=== PATIENT | female | born 1960 | race Caucasian/White ===

== ENCOUNTER 2021-09-23 19:21 | Emergency (ER) | payer BC, SELFPAY ==
[2021-09-23 19:27] VITALS: BP 157/77; PULSE 73; RESP 16; TEMP 36.2; O2SAT 99
--- NOTE | 2021-09-23 19:38 | ED.EAR ---
HPI - Ear Problem General Chief complaint: Ear Stated complaint: FB L EAR Time Seen by Provider: 09/23/21 19:38 Source: patient, RN notes reviewed and old records reviewed Mode of arrival: ambulatory Limitations: no limitations History of Present Illness HPI Narrative: 60 year old female who presents to [facility] with complaints of piece of her hearing aid being stuck in her left ear canal today and she is unable to get it removed. Patient denies any pain to her left ear, no drainage from her left ear. Patient is visiting her daughter in area she is from [facility]. Patient denies any other complaints at this time. She has not had COVID or Flu Shot she did have COVID in April of 2021. Complaint: foreign body (piece off of hearing aid) Location: left ear Related Data Home Medications Medication Instructions Recorded Confirmed No Home Medications 09/23/21 09/23/21 Allergies Allergy/AdvReac Type Severity Reaction Status Date / Time No Known Allergies Allergy Verified 09/23/21 19:28 Review of Systems Review of Systems: CONSTITUTIONAL: Denies fever, chills, or sweats. EYES: Denies visual changes, redness, or discharge. ENT: Denies rhinorrhea, congestion, sore throat, or otalgia.positive for foreign body in left ear CARDIOVASCULAR: Denies chest pain, palpitations, or edema. RESPIRATORY: Denies cough or dyspnea. GASTROINTESTINAL: Denies abdominal pain, nausea, vomiting, or diarrhea. GENITOURINARY: Denies dysuria or hematuria. SKIN: Denies rash or itching. MUSCULOSKELETAL: Denies back pain, joint pain, or myalgia. NEUROLOGIC: Denies headache, numbness, or weakness. PSYCHIATRIC: Denies anxiety or depression. [facility] Past Medical History Medical History (Updated 09/24/21 @ 19:34 by Spring Zavala NP) COVID-19 April of 2021 Surgical History Surgical History (Updated 09/24/21 @ 19:34 by Spring Zavala NP) H/O tubal ligation Social History Social History (Updated 09/24/21 @ 19:35 by Spring Zavala NP) Smoking status: Never smoker Alcohol intake: current Alcohol use details: social Substance use: never Substance use type: does not use Living arrangements: with family Gender identity (if verbalized by the patient): Female Comments At time of signature, agree with nursing past medical, surgical, social and family history. There is no relevant family history pertinent to the presenting complaint Exam Narrative: GENERAL: Well-appearing, well-nourished, and in no acute distress. HEAD: Normocephalic, atraumatic. EYES: PERRLA and EOMI. ENT: Nares clear, no rhinorrhea or epistaxis. Mucous membranes moist.TM's normal with good light reflex, presented with end of hearing aid stuck in left ear canal, removed using alligator forceps no injury to ear canal noted. throat pink with no lesions or exudates or tonsil swelling. NECK: Supple.no lymphadenopathy CHEST: Clear to auscultation. No respiratory distress. HEART: Regular rate and rhythm. No murmur heard. Normal peripheral pulses. ABDOMEN: Soft, nontender, nondistended, normal active bowel sounds. EXTREMITIES: Normal range of motion. No edema. SKIN: Warm, dry, no rash. NEURO: No focal deficits. Alert and oriented x3. Course Course Level of Care: Express Care Visit Vital Signs Vital signs: Vital Signs Temperature 36.2 C L 09/23/21 19:27 Pulse Rate 73 09/23/21 19:27 Respiratory Rate 16 09/23/21 19:27 Blood Pressure 157/77 H 09/23/21 19:27 Pulse Oximetry 99 09/23/21 19:27 Oxygen Delivery Room Air 09/23/21 19:27 Temperature 36.2 C L 09/23/21 19:27 Pulse Rate 73 09/23/21 19:27 Respiratory Rate 16 09/23/21 19:27 Blood Pressure 157/77 H 09/23/21 19:27 Pulse Oximetry 99 09/23/21 19:27 Oxygen Delivery Room Air 09/23/21 19:27 Procedures FB Removal Ear Foreign Body #1: Foreign Body Removal Date: 09/23/21 Foreign Body Removal Time: 19:42 Location: ear corin
== END 2021-09-23 19:54 | disposition home or self-care (01) ==
PROVIDERS: Emergency Provider Registered Nurse
DX: T16.2XXA Foreign body in left ear, initial encounter (principal); Z86.16 Personal history of COVID-19
CPT/HCPCS: 69200; 99212; G0463